=== PATIENT | female | born 1960 | race Caucasian/White ===

== ENCOUNTER 2018-12-30 11:55 | Day surgery (SDC) | payer OTHER ==
[~2018-12-30] VITALS: Ht 165.1 cm; Wt 94.8 kg
[~2018-12-30 11:55] MED LIST: LISINOPRIL-HCT1 EACH PO; MIRAPEX0.5 MG PO
--- NOTE | 2018-12-30 12:57 | NUR ---
12/30/18 Myesha Weiner 1254: PT ARRIVES TO PACU FROM ENDO LEFT LATERAL WITH 3L O2 VIA NC IN PLACE. PT AROUSES TO VERBAL AND TACTILE STIMULI. PT DENIES ANY PAIN OR NAUSEA. STATES "JUST SLEEPY."
--- NOTE | 2018-12-31 13:10 | OR ---
[facility] [address], [place] [address] Signed DATE OF OPERATION: 12/30/2018 SURGEON: Marilu Jean MD PREOPERATIVE DIAGNOSIS: History of flat polyp of cecum 2011. POSTOPERATIVE DIAGNOSES: 1. No evidence of recurrent polyp. 2. Sigmoid diverticulosis. PROCEDURE PERFORMED: Total colonoscopy to cecum. ANESTHESIA: Intravenous sedation, fentanyl 100 mcg, Versed 4 mg. INDICATIONS: This 58-year-old white woman is a patient of Dr. Nicole, underwent colonoscopy in 2011, where she was found to have a flat polyp of the cecum, which was excised. This proved to be hyperplastic rather than adenomatous. She has had no symptoms of bleeding, diarrhea, or constipation, and has no family history of colon cancer. She is admitted to undergo surveillance colonoscopy at this time. She understands the risk of bleeding, infection, and perforation and wished to proceed. FINDINGS: Prep was excellent. Complete colonoscopy was undertaken of the cecum. There were diverticula of the sigmoid with no sign of recurrent polyp or new polyp. DESCRIPTION OF PROCEDURE: The patient was brought to the endoscopy suite and placed in lateral decubitus position, given intravenous sedation to the point of slurred speech and nystagmus. Digital rectal examination was normal. An Olympus video colonoscope was passed in the rectum and manipulated throughout the colon noting diverticular changes of sigmoid and left colon. Scope was ultimately advanced to the cecum. Irrigation was undertaken. There was no sign of polyp that could be told. The scope was carefully withdrawn from that point and examination throughout showed no sign of polyps, only diverticular changes as described. Retroflexed view of the rectum was normal. Scope was removed and the patient was taken Electronically Signed By: MARILU JEAN MD 12/31/18 1310 PATIENT NAME: RAYMON CARDENAS OPERATIVE REPORT DATE OF : 60 REPORT #: [id number] PHYSICIAN: MARILU JEAN MD PCP: JOHANA NICOLE MD REPORT IS CONFIDENTIAL AND NOT TO BE RELEASED WITHOUT AUTHORIZATION [facility] [address], [place] [address] Signed to recovery room in good condition. CONCLUDING DIAGNOSIS: Diverticular changes of sigmoid and left colon. PLAN: Recommend high-fiber diet and repeat colonoscopy in 5 years, sooner if clinically indicated. She will return to the ongoing care of Dr. Nicole otherwise. Marilu Jean MD [facility]/MODL /[id number] cc: Johana Nicole MD Copies: JOHANA NICOLE MD ~ Electronically Signed By: MARILU JEAN MD 12/31/18 1310 PATIENT NAME: RAYMON CARDENAS OPERATIVE REPORT DATE OF : 60 REPORT #: [id number] PHYSICIAN: MARILU JEAN MD PCP: JOHANA NICOLE MD REPORT IS CONFIDENTIAL AND NOT TO BE RELEASED WITHOUT AUTHORIZATION
== END 2018-12-30 14:05 | disposition home or self-care (01) ==
LOC: OPS 11:55 → DS 11:58 → OPS 13:00 → DS 13:00 → OPS 14:05
PROVIDERS: Surgery
PROC: 0DJD8ZZ Inspection of Lower Intestinal Tract, Via Natural or Artificial Opening Endoscopic (ICD-10-PCS; principal; 2018-12-30 13:00)
DX: Z12.11 Encounter for screening for malignant neoplasm of colon (principal); K57.30 Diverticulosis of large intestine without perforation or abscess without bleeding; G47.33 Obstructive sleep apnea (adult) (pediatric); G25.81 Restless legs syndrome; I10 Essential (primary) hypertension; Z98.890 Other specified postprocedural states; Z86.010 Personal history of colon polyps; Z88.8 Allergy status to other drugs, medicaments and biological substances
CPT/HCPCS: G0500; J2250; J3010; J7121

== ENCOUNTER 2023-10-22 05:45 | Day surgery (SDC) | payer OTHER ==
[2023-10-15 08:26] VITALS: BP 128/80
[~2023-10-22] VITALS: Ht 165.1 cm; Wt 79.5 kg
[~2023-10-22 05:45] MED LIST changes: +MIDAZOLAM HCL 5 MG/5 ML VIAL IV PRN; +ZEPBOUND2.5 MG/0.5 SUB-Q; +fentaNYL citrate 100 MCG/2 ML VIAL IV PRN
[2023-10-22 05:51] VITALS: BP 137/67
[2023-10-22] MEDS ORDERED: LACTATED RINGER'S 1,000 ML IV SCH (07:00)
[2023-10-22] MEDS ORDERED: IBLOOD GLUCOSE TEST STRIP 1 EA TEST VI PRN (07:00)
[2023-10-22] MEDS ORDERED: LIDOCAINE HCL 1% 5 ML SDV INJ ONE (07:00)
[2023-10-22] MEDS ORDERED: LIDOCAINE HCL 2% 5 ML SDV ONE (07:20)
[2023-10-22] MEDS ORDERED: propofoL 200 MG/20 ML VIAL ONE (07:20)
--- NOTE | 2023-10-22 07:37 | NUR ---
PT GONE FOR PROCEDURE. PROVIDED PRAYER.
--- NOTE | 2023-10-22 07:58 | NUR ---
10/22/23 0758 Lalita Ramos 0756-PATIENT ARRIVED TO PACU ON 6L MASK RR EVEN GISELA FREIGHT RATE SPECIALIST REMOVED MASK ON RA 98% RR EVEN. PATIENT NONAROUSABLE LAYING LEFT LATERAL. SR IVF INFUSING. ABDOMEN SOFT.
[2023-10-22 08:26] VITALS: BP 152/88
--- NOTE | 2023-10-22 09:19 | OR ---
[facility] [address] [place], [place] [address] Signed DATE OF OPERATION: 10/22/2023 SURGEON: Hayes Jason MD PREOPERATIVE DIAGNOSES: 1. Personal history of colonic polyps. 2. Father and mother with a history of colonic polyps. 3. Hemorrhoids. POSTOPERATIVE DIAGNOSES: 1. Minimal to moderate external hemorrhoids. 2. Minimal internal hemorrhoids. 3. A small internal anal skin tag x1. PROCEDURE: Colonoscopy without biopsy. ESTIMATED BLOOD LOSS: None. 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 She actually has a caregiver to help her throughout the day and night. She was asked to see me for a colonoscopy. She remembers having a colonoscopy around age 50. She said polyps were removed. In addition, her mom and father both had colonic polyps removed. They have been on the five-year plan as well as herself. Dr. Gregory helped her with a colonoscopy in 2019 at the age of 58. No polyps were removed. She told me there are no current lower GI complaints. In the office, I gave her a pamphlet on colonoscopy. We reviewed the nature of the test. There is risk including, but not limited to gas bloating, crampy abdominal pain, bleeding, perforation requiring surgery, and missed diagnosis. We also reviewed the written instructions for the bowel prep line by line. We had discussed the need for sedation. She told me she has severe sleep apnea and has to use her CPAP mask otherwise, she cannot sleep. She was very clear that she needed monitored anesthesia care with propofol infusion. That actually is a lo decision for her for her safety. In that regard, she did have preoperative blood work and an EKG. She also understands the need to have an adult person take her home afterwards. She had expressed understanding and wished to proceed. PROCEDURE NOTE: Raymon was taken into our endoscopy suite and placed in the left lateral decubitus Electronically Signed By: HAYES JASON MD 10/22/23 0919 PATIENT NAME: RAYMON CARDENAS OPERATIVE REPORT DATE OF : 60 REPORT #: [id number] PHYSICIAN: HAYES JASON MD PCP: TASH GOLDSTEIN MD REPORT IS CONFIDENTIAL AND NOT TO BE RELEASED WITHOUT AUTHORIZATION [facility] [address], [place] [address] Signed position. She was given monitored anesthesia care with propofol infusion per nurse retail delivery driver. A digital rectal exam was performed and indeed she has circumferential external hemorrhoids. They are minimal to moderate in size. At this point in her life they are a little scarred as well. She had good sphincter tone. There were no masses. The adult colonoscope was introduced and advanced all around into the cecum under direct visualization of camera without difficulty. Her prep was quite excellent. We could easily see the appendiceal orifice and ileocecal valve. The scope was then slowly withdrawn. She did have some diverticula in the left side. They are moderate in size, few in number and scattered about. There were no polyps. The rectum was unremarkable. It appears that she has an old polypectomy scar in her rectum. Upon retroflexion of the scope, she had very minimal internal hemorrhoid tissue and one tiny internal anal skin tag. After this, the gas was suctioned out and colonoscope removed. Raymon tolerated the procedure quite well. RECOMMENDATIONS: Raymon can follow up in five years for repeat screening colonoscopy. Hayes Jason MD [facility]/MODL /[id number] cc: MD Marlene Madden PA-C Copies: HAYES JASON MD ~ Electronically Signed By: HAYES JASON MD 10/22/23918 PATIENT NAME: RAYMON CARDENAS OPERATIVE REPORT DATE OF : 60 REPORT #: [id number] PHYSICIAN: HAYES JASON MD PCP: TASH GOLDSTEIN MD REPORT IS CONFIDENTIAL AND NOT TO BE RELEASED WITHOUT AUTHORIZATION
== END 2023-10-22 08:30 | disposition home or self-care (01) ==
LOC: DS 05:45
PROVIDERS: ATTEND Colon & Rectal Surgery
PROC: 0DJD8ZZ Inspection of Lower Intestinal Tract, Via Natural or Artificial Opening Endoscopic (ICD-10-PCS; principal; 2023-10-22 07:30)
DX: Z12.11 Encounter for screening for malignant neoplasm of colon (principal); K64.8 Other hemorrhoids; K64.4 Residual hemorrhoidal skin tags; Z86.010 Personal history of colon polyps; Z83.719 Family history of colon polyps, unspecified; I10 Essential (primary) hypertension; G47.33 Obstructive sleep apnea (adult) (pediatric); I49.3 Ventricular premature depolarization; G25.81 Restless legs syndrome; Z88.8 Allergy status to other drugs, medicaments and biological substances; Z79.899 Other long term (current) drug therapy
CPT/HCPCS: 00811; J2001; J2704; J7121